=== PATIENT | male | born 1995 | race Caucasian/White ===

== ENCOUNTER → 2017-04-15 | Outpatient (CLI) | payer BC, OTHER ==
--- NOTE | 2017-04-15 16:50 | DIAGNOSTIC IMAGING REPORT ---
LEFT KNEE MRI HISTORY: Left knee injury and pain. COMPARISON STUDY: None. TECHNIQUE: Multiplanar multisequence MRI of the left knee was performed according to standard department protocol without the use of contrast. FINDINGS: Menisci: The medial and lateral menisci are intact. Ligaments: The anterior and posterior cruciate ligaments are intact. The medial and lateral collateral ligaments are normal in appearance. Extensor mechanism: The quadriceps tendon and patellar ligament are intact. Articular cartilage and bone: The articular cartilage is intact, and normal marrow signal intensity is seen throughout the imaged osseous structures. Joint effusion: Moderate. Soft tissues: Intact. IMPRESSION: 1. Moderate joint effusion. 2. The menisci are intact. Electronically signed by: Pedro Packer M.D. 04/15/2017 4:49 PM Dictated Date/Time: 04/15/2017 4:43 PM
--- NOTE | 2017-04-15 16:59 | DIAGNOSTIC IMAGING REPORT ---
ADDENDUM There is abnormal edema adjacent to the posterior lateral aspect of the lateral meniscus. This raises the possibly of meniscocapsular injury/separation. Electronically signed by: Pedro Packer M.D. 04/15/2017 5:46 PM Dictated Date/Time: 04/15/2017 5:45 PM ORIGINAL REPORT LEFT KNEE 2 VIEWS HISTORY: Left knee pain. LEFT MENISCUS TEAR COMPARISON: None. FINDINGS: There is no fracture or dislocation. Moderate knee effusion. No radiopaque foreign bodies. IMPRESSION: No fractures. Moderate knee effusion. Electronically signed by: Pedro Packer M.D. 04/15/2017 4:58 PM Dictated Date/Time: 04/15/2017 4:57 PM
== END | disposition home or self-care (01) ==
LOC: C.MRI 15:28
PROVIDERS: ATTEND Physician Assistant
DX: S83.282A Other tear of lateral meniscus, current injury, left knee, initial encounter (principal); X58.XXXA Exposure to other specified factors, initial encounter; M25.461 Effusion, right knee

== ENCOUNTER → 2017-04-27 | Day surgery (SDC) | payer BC, OTHER ==
[2017-04-20 15:36] VITALS: Ht 185.4 cm; Wt 79.5 kg
[~2017-04-27] VITALS: Ht 185.4 cm; Wt 79.5 kg
[~2017-04-27] MED LIST: ATROPINE SULFATE 0.1 MG/ML 5ML SYR IV PRN; BUPIVACAINE/EPINEPHRINE 0.5% MPF 1:200,000 30 ML VIAL ONE; CEFAZOLIN 2000 MG/60 ML D5W IV SCH; CEPH500C2 PO; DEXAMETHASONE SOD INJ 4 MG/ML VIAL ONE; EpHEDrine SULFATE INJ 50 MG/ML AMP IV PRN; FENTANYL CITRATE INJ 50 MCG/1 ML 2 ML VIAL ONE; HYDR-5688 PO; HYDROCODONE/ACETAMOPHEN 5/325MG TAB ONE; HYDROCODONE/ACETAMOPHEN 5/325MG TAB PO ONE; IBUP-1277 PO; LACTATED RINGER'S 1000ML 1,000 ML IV SCH; LIDOCAINE HCL 2% 2 ML VIAL (20MG/ML) ONE; MIDAZOLAM HCL 1 MG/ML 2ML VIAL ONE; MORPHINE SULFATE PF 2MG/2ML SYR ONE; ONDANSETRON INJ 2 MG/ML 2 ML VIAL IV PRN; ONDANSETRON INJ 2 MG/ML 2 ML VIAL ONE; PROPOFOL IV EMULSION 10 MG/ML 20 ML VIAL IV ONE; SODIUM CHLORIDE 0.9% 1000ML 1,000 ML IV SCH
--- NOTE | 2017-04-27 06:51 | History & Physical Bridge Note ---
H&P Re-Evaluation Bridge Note: I have examined the patient, reviewed the History & Physical and in the interval since the performance of the History & Physical I have noted the following changes of clinical significance:consent obtained. No changes noted
--- NOTE | 2017-04-27 06:53 | Discharge Instructions ---
Discharge Instructions Date of Service Apr 27, 2017. Visit Reason for Visit: Left Knee Lateral Meniscus Tear Discharge Discharge Diagnosis / Problem: same Discharge Goals Goal(s): Decrease discomfort, Improve function Medications Stopped Medications Name(s): na Restart Stopped Medication(s): use all scripts as directed Activity Recommendations Activity Limitations: as noted below Lifting Limitations: until after follow-up appointment Exercise/Sports Limitations: until after follow-up appointment May Resume Sexual Activity: after follow-up appointment Shower/Bathe: keep incision dry Driving or Machine Use: resume 1 day after discharge Weightbearing Status: Left weightbearing (as tolerated) Anesthesia . Post Anesthesia Instructions: If you have had General Anesthesia or IV Sedation: * Do not drive today. * Resume driving when surgeon permits. * Do not make important decisions or sign legal documents today. * Call surgeon for: 1. Temperature elevations greater than 101 degrees F. 2. Uncontrollable pain. 3. Excessive bleeding. 4. Persistent nausea and vomiting. 5. Medication intolerance (nausea, vomiting or rash). * For nausea and vomiting use only clear liquids such as: tea, soda, bouillon until nausea subsides, then gradually increase diet as tolerated. * If you have any concerns or questions, call your surgeon's office. If physician is unavailable and it is an emergency, call 911 or go to the nearest emergency room. . Instructions / Follow-Up Instructions / Follow-Up The following are instructions to follow after your Arthroscopic Knee Surgery. ACTIVITY RECOMMENDATIONS: * Minimize activity until your first visit after surgery. * No excessive walking, jogging, sports or laboring. * Return to activity is individualized. Most patients are able to return to every day activities within one month. * Return to sports or intensive labor usually occurs at 2-3 months. * Driving is not permitted until at least your first postoperative visit at a minimum. Please ask your doctor when it is safe to resume driving. If you have an automatic vehicle and your left leg has been operated on, then you may begin driving as soon as you are comfortable and can drive safely. SCHOOL/WORK RECOMMENDATIONS: * You may return to sedentary work or school when you are feeling more comfortable. This is usually 3-7 days after surgery. * Expect increased discomfort with increased activity. Continue to elevate and ice the leg as much as possible. MEDICATIONS: * You will have a prescription for pain medication and an anti-inflammatory medication after surgery. * Use the pain medication for severe pain and the anti-inflammatory for less severe pain. Once the pain medication has run out, try to use the anti-inflammatory medication. If this is not effective, contact the office for assistance. * The pain medication may cause nausea, constipation and drowsiness. You should see how they affect you before driving or similar activity. * The anti-inflammatory medication may cause stomach upset and bleeding. If this occurs let your doctor know immediately . * Take a stool softener like Colace or a laxative like Senokot to prevent constipation. DIET: * Resume previous diet. SPECIAL CARE: ICE: You have the option of an ice cooler, gel packs or ice bags. * If you have an ice cooler, refer to the instructions for that device. The ice cooler may be used continuously. * If you do not have an ice cooler, you will need to use ice bags or gel packs. Do not apply ice directly to the skin. Use a thin dressing or winsome shirt between the skin and ice bag. Apply ice for 20-30 minutes and repeat every 2-4 hours. This is especially important for the first 7-10 days after surgery. Once the pain improves, use ice as needed. ELEVATION: * Keep your leg elevated at or above the level of your heart as much as possible. * Expect some increased discomfort and swelling if you are standing for any length of time. * When lying down, avoid placing anything under your knee. Rather, prop your leg up by placing several pillows under your heel or calf. DRESSING: * Your dressing will be changed at your first therapy appointment approximately 4-5 days after surgery. Band-aids, tape strips or gauze may be applied. You may then change your dressing daily. * Reapply dressing followed by the Luis wrap or Tubi-central supply assistant stockinet and EBIce cooling pad (if chosen). * Always wash your hands prior to touching the incision area. * Once the stitches are removed, you may leave the wound open to air or cover with an Luis wrap or Tubi-central supply assistant stockinet. * If you have been given a white elastic stocking (VU hose), wear as much as possible for the first 1-3 weeks depending on swelling. * Expect some bloody drainage for the first few days after surgery. * Leave the tape strips, if present, in place for 5-7 days. * Band-aids and gauze may be changed daily. CRUTCHES: * You will need to use crutches after surgery. * You may gradually progress to full weight bearing as tolerated and wean off the crutches unless otherwise advised. * Your therapist can provide assistance weaning off crutches. * Patients who have a microfracture done may need to be toe-touch weight- bearing for 4-6 weeks. BATHING: * You may shower or sponge-bathe immediately after surgery. * The dressing will need to be covered with a plastic bag or plastic wrap until the dressing is changed on the fourth or fifth day after surgery. * Once the dressing has been changed on the fourth or fifth day after surgery, you may shower and get the incision wet. * Wash with regular soap and water. * Do not bathe (submerge the incision), soak, swim or use a hot tub until the incision is completely healed over with normal skin and the doctor has given the OK to proceed. * There is no need to apply any ointments, powders or salves to your incision. * Do not apply alcohol or hydrogen peroxide directly to the incision. * Diluted peroxide (50:50 mixture with sterile saline) may be used to clean dried blood from around the incision area. BRACE: * Bracing is generally not needed after routine Arthroscopic Knee surgery. THERAPY: * You will begin therapy four or five days after surgery. * Organized therapy with the therapist is important for the first 4-6 weeks after surgery. During that time you will attend therapy 1-3 times per week. * You will also need to do daily exercises for range of motion and strength as instructed. PROBLEMS/QUESTIONS: * If you have any problems such as severe pain, numbness, tingling or high fevers or if you have any questions, please contact the office at [phone]. * It is not uncommon to have some numbness and tingling after the surgery especially if you have had a nerve block done. This should gradually improve over the first 1- 2 days. If this persists longer or worsens please contact the office. FOLLOW UP VISIT: * If not already scheduled, please call the office at to schedule a follow-up appointment for 10 days, 6 weeks and 3 months after surgery. Diet Recommendations Recommended Home Diet: resume previous diet Procedures Procedures Performed: arthroscopy lateral meniscus surgery Pending Studies Studies pending at discharge: no Medical Emergencies . Who to Call and When: Medical Emergencies: If at any time you feel your situation is an emergency, please call 911 immediately. . Non-Emergent Contact Non-Emergency issues call your: Specialist Call Non-Emergent contact if: temperature is above 101.5, wound has increased drainage, wound has increased redness, wound has increased pain, you have any medication questions . . "Provider Documentation" section prepared by Arash Olson. .
--- NOTE | 2017-04-27 08:49 | [facility] Post Operative Brief Note ---
Immediate Operative Summary Operative Date Apr 27, 2017. Pre-Operative Diagnosis Left Knee Lateral Meniscus Tear Post-Operative Diagnosis Same Procedure(s) Performed Left Knee Arthroscopy, Lateral Meniscus Repair Surgeon Dr Olson Service Learning Coordinator Surgeon(s) Phillip Cline PA-C Estimated Blood Loss Trace Findings LM tear red/white and red/red Fluids (cc crystalloids) 700cc Specimens None Drains none Anesthesia LMA Complication(s) None Disposition Recovery Room / PACU
--- NOTE | 2017-04-27 09:11 | OPERATIVE REPORT ---
DATE OF OPERATION: 04/27/2017 PREOPERATIVE DIAGNOSIS: Lateral meniscus tear, left knee. POSTOPERATIVE DIAGNOSIS: Same, repairable. OPERATION PERFORMED: 1. Exam under anesthesia. 2. Diagnostic arthroscopy. 3. Arthroscopic all inside lateral meniscus repair. SURGEON: Dr. Olson. INSOLE TACK PULLER HAND: Jerome Cline PA-C. No resident or fellow available. PERIOPERATIVE SITUATION: Medically cleared male high level [employer] kristen who presents with intermittent locking of his knee. Physical exam, x-ray and MRI scan consistent with peripheral lateral meniscus tear. OPERATION AND FINDINGS: OPERATION: The patient appropriately identified, site verified, consent verified, 2 grams of Ancef confirmed as being given. The knee was examined revealing no ligamentous instability. He had full range of motion. The knee was then prepped and draped in usual routine fashion after it was sterilely injected with 20 mL of 0.5% Marcaine with epinephrine and 5 mg of Duramorph for postoperative pain control. Inframedial and inferolateral portals were made. Inspection of the joint revealed a hypertrophic plica which was resected anteriorly. There was some minor articular surface scuffing of the patellofemoral joint which was incidentally debrided. The medial compartment was healthy. The ACL and PCL were normal. The lateral meniscus had a red on red to red on white peripheral tear which was unstable to probing. It extended from the hiatus anteriorly to about 0.5 cm from the root. The area was then freshened with a shaver and with a rasp and then 5 sutures were placed in a horizontal and vertical mattress fashion to secure the meniscus. An excellent repair was obtained. The knee was unable to be fully extended. The meniscus was probed. There was no issue with it being unstable any further. The procedure was then terminated. All instruments and fluid removed and the portals closed with 3-0 nylon, dressed with Xeroform, 4 x 4 gauze, sterile Webril, ABD pads and a double 6 inch Luis bandage. A range of motion brace locked at 0 degrees was then placed. He will be weightbearing to tolerance with the brace locked straight. No motion for 2 weeks. Start range of motion not exceeding 90 degrees for approximately a total of 6 weeks postop. Again, he will be completely still for a minimum of 2 weeks. DVT prophylaxis per protocol. ESTIMATED BLOOD LOSS: Trace. CRYSTALLOID: 700 mL. I attest to the content of the Intraoperative Record and any orders documented therein. Any exception s are noted below.
[2017-04-27] MEDS: FENTANYL CITRATE INJ 50 MCG/1 ML 2 ML VIAL IV PRN ×2 (09:13→09:19)
[2017-04-27 09:46] VITALS: TEMP 36.4
[2017-04-27 10:29] VITALS: BP 103/64; PULSE 52; O2SAT 100
--- NOTE | 2017-04-27 10:33 | [facility] Operative Report ---
Operative Report Operative Date Apr 27, 2017. Pre-Operative Diagnosis Left Knee Lateral Meniscus Tear Post-Operative Diagnosis Same Procedure(s) Performed Left Knee Arthroscopy, Lateral Meniscus Repair Surgeon Dr Olson Insurance Loss Control Surveyor Surgeon(s) Phillip Cline PA-C Estimated Blood Loss Trace Findings Left knee lateral meniscal tear Fluids (cc crystalloids) 700cc Specimens None Drains none Complication(s) None Disposition Recovery Room / PACU Indications This 21-year-old white male presented to the office with complaints of left knee pain after injuring himself in a soccer game. He had tried conservative care including bracing without success. X-ray and MRI were obtained. He elected to proceed with surgical intervention after being educated about potential risks and outcomes. Description of Procedure Patient was taken to the operating room where he was given general anesthesia. He was prepped and draped in usual sterile fashion. Please see Dr. Olson's operative report for specifics of the procedure. I was present for the entire case from initial patient positioning through final wound closure. Assistance was provided in patient positioning, arthroscopy, hardware placement, and final wound closure. Patient was taken to the recovery room in satisfactory condition. I attest to the content of the Intraoperative Record and any orders documented therein. Any exceptions are noted below.
--- NOTE | 2017-04-27 10:35 | Anesthesiology Progress Note ---
Anesthesia Post Op Note Date & Time Apr 27, 2017 at 10:34 Vital Signs Pain Intensity: 7 Vital Signs Past 12 Hours Date Time Temp Pulse Resp B/P (MAP) Pulse Ox O2 Delivery O2 Flow Rate FiO2 04/27/17 10:29 52 16 103/64 (77) 100 Room Air 04/27/17 09:46 36.4 62 16 122/73 (89) 100 Room Air 04/27/17 09:41 61 8 100 04/27/17 09:41 59 8 04/27/17 09:40 121/72 04/27/17 09:36 63 13 04/27/17 09:36 63 13 100 04/27/17 09:35 123/82 04/27/17 09:32 62 18 04/27/17 09:32 57 18 100 04/27/17 09:30 36.2 57 13 123/82 98 Room Air 04/27/17 09:30 114/86 04/27/17 09:27 71 17 100 04/27/17 09:27 70 17 04/27/17 09:26 104/72 04/27/17 09:22 56 12 100 04/27/17 09:22 58 12 04/27/17 09:20 118/76 04/27/17 09:17 58 16 100 04/27/17 09:17 60 16 04/27/17 09:15 121/67 04/27/17 09:12 49 21 04/27/17 09:12 50 21 100 04/27/17 09:10 106/69 04/27/17 09:07 72 12 04/27/17 09:07 75 12 100 04/27/17 09:05 118/66 04/27/17 09:02 75 8 100 04/27/17 09:02 73 8 04/27/17 09:01 99/70 04/27/17 08:57 62 18 100 04/27/17 08:57 63 18 04/27/17 08:55 112/59 04/27/17 08:52 60 17 04/27/17 08:52 59 17 92/51 99 04/27/17 08:52 36.1 58 20 92/51 99 Mask 6 04/27/17 06:29 36.6 89 16 112/80 (91) 100 Room Air Notes Mental Status: alert / awake / arousable, participated in evaluation Pt Amnestic to Procedure: Yes Nausea / Vomiting: adequately controlled Pain: adequately controlled Airway Patency, RR, SpO2: stable & adequate BP & HR: stable & adequate Hydration State: stable & adequate Anesthetic Complications: no major complications apparent
== END | disposition home or self-care (01) ==
LOC: X.SURG 06:20
PROVIDERS: ATTEND Physical Medicine & Rehabilitation Sports Medicine
DX: S83.262A Peripheral tear of lateral meniscus, current injury, left knee, initial encounter (principal); X58.XXXA Exposure to other specified factors, initial encounter; Y93.66 Activity, soccer; F17.200 Nicotine dependence, unspecified, uncomplicated; Z68.23 Body mass index [BMI] 23.0-23.9, adult

== ENCOUNTER 2017-05-01 22:49 | Emergency (ER) | payer BC, OTHER ==
[~2017-05-01] VITALS: Ht 185.4 cm; Wt 76.7 kg
[~2017-05-01 22:49] MED LIST changes: -ATROPINE SULFATE 0.1 MG/ML 5ML SYR IV PRN; -BUPIVACAINE/EPINEPHRINE 0.5% MPF 1:200,000 30 ML VIAL ONE; -CEFAZOLIN 2000 MG/60 ML D5W IV SCH; -DEXAMETHASONE SOD INJ 4 MG/ML VIAL ONE; -EpHEDrine SULFATE INJ 50 MG/ML AMP IV PRN; -FENTANYL CITRATE INJ 50 MCG/1 ML 2 ML VIAL ONE; -HYDROCODONE/ACETAMOPHEN 5/325MG TAB ONE; -HYDROCODONE/ACETAMOPHEN 5/325MG TAB PO ONE; -LACTATED RINGER'S 1000ML 1,000 ML IV SCH; -LIDOCAINE HCL 2% 2 ML VIAL (20MG/ML) ONE; -MIDAZOLAM HCL 1 MG/ML 2ML VIAL ONE; -MORPHINE SULFATE PF 2MG/2ML SYR ONE; -ONDANSETRON INJ 2 MG/ML 2 ML VIAL IV PRN; -ONDANSETRON INJ 2 MG/ML 2 ML VIAL ONE; -PROPOFOL IV EMULSION 10 MG/ML 20 ML VIAL IV ONE; -SODIUM CHLORIDE 0.9% 1000ML 1,000 ML IV SCH
[2017-05-01 22:52] VITALS: TEMP 36.4; Ht 185.4 cm; Wt 76.7 kg
[2017-05-01] MEDS ORDERED: SODIUM CHLORIDE 0.9% 1000ML 1,000 ML IV STA (23:08)
[2017-05-01] MEDS ORDERED: KETOROLAC TROMETHAMINE 30 MG/ML VIAL IV STA (23:08)
[2017-05-01] MEDS ORDERED: MoRPHine SULFATE 4 MG/ML 1 ML CARP\\VIAL IV STA (23:08)
[2017-05-01] MEDS ORDERED: ONDANSETRON INJ 2 MG/ML 2 ML VIAL IV STA (23:08)
[2017-05-01 23:28] VITALS: O2SAT 100
[2017-05-01 23:38] LABS: BASO % 0.1 %; BASO ABS # 0.01 K/uL (0-0.2); COMPLETE YES; EOS % 0.1 %; HEMATOCRIT 41.6 % (42-52); IG% 0.1 %; LYMPH % 34.7 %; LYMPH ABS # 3.41 K/uL (1.2-3.4); MEAN CELL VOLUME 82.5 fL (80-100); MEAN CORPUSCULAR HEMOGLOBIN 29.2 pg (25-34); MEAN CORPUSCULAR HGB CONC 35.3 g/dl (32-36); MONO % 5.7 %; NEUT % 59.3 %; PLATELET COUNT 200 K/uL (130-400); RED BLOOD COUNT 5.04 M/uL (4.7-6.1); WHITE BLOOD COUNT 9.82 K/uL (4.8-10.8)
[2017-05-01 23:48] LABS: PARTIAL THROMBOPLASTIN RATIO 1.1
[2017-05-01 23:57] LABS: ALT/SGPT 44 U/L (12-78); AST/SGOT 33 U/L (15-37); BLOOD UREA NITROGEN 20 mg/dl (7-18); BUN/CREATININE RATIO 18.6 (10-20); CALCIUM 9.5 mg/dl (8.5-10.1); CARBON DIOXIDE 25 mmol/L (21-32); CHLORIDE 104 mmol/L (98-107); CREATININE 1.05 mg/dl (0.60-1.40); GLUCOSE 105 mg/dl (70-99); POTASSIUM 3.7 mmol/L (3.5-5.1); SODIUM 140 mmol/L (136-145)
[2017-05-01 23:59] LABS: ALKALINE PHOSPHATASE 74 U/L (45-117); C-REACTIVE PROTEIN < 0.29 mg/dl (0-0.29)
[2017-05-02] MEDS ORDERED: HYDR-5688 PO (01:09)
[2017-05-02 01:15] VITALS: BP 122/74; PULSE 67; O2SAT 96
--- NOTE | 2017-05-02 02:18 | EMERGENCY ROOM VISIT NOTE ---
History First contact with patient: 22:58 Chief Complaint: KNEEPAIN Stated Complaint: CAN'T BREATH, ARMS ARE NUMB, L KNEE HEAVY, NAUSEA History of Present Illness The patient is a 21 year old male who presents to the Emergency Room with complaints of left knee pain, swelling, shortness of breath and numbness/ tingling in his arms. The patient reports that he underwent a left knee arthroscopy with meniscus repair 4 days ago. This was performed by Dr. Sherman. The patient admits that his knee has been quite painful, and may not have been taking his pain medications enough. He has not noticed any redness of the knee or drainage from the incision sites. He denies any fever or chills, nausea, vomiting or back pain. He rates his discomfort a 6 out of 10. The patient denies history of anxiety or panic attacks. The patient reports that he has been using his brace and crutches as instructed, and elevating/icing the knee for swelling. Review of Systems HEENT: Denies dizziness, visual problems, hearing loss, tinnitus. Denies difficulty swallowing or oral lesions. PULMONARY: Denies cough, shortness of breath, sputum production or hemoptysis. CARDIOVASCULAR: Denies chest pain, palpitations, dyspnea on exertion, orthopnea or peripheral edema. GASTROINTESTINAL: Denies diarrhea, constipation, nausea, vomiting, or abdominal pain. GENITOURINARY: Denies dysuria, frequency, urgency or nocturia. NEUROLOGIC: Denies history of epilepsy, CVA, TIA or chronic headaches. MUSCULOSKELETAL: Denies history of joint tenderness/swelling. SKIN: Denies rashes or lesions. PSYCHIATRIC: Denies history of depression or mental illness. ENDOCRINE: Denies history of diabetes or thyroid disorders. Past Medical/Surgical History Medical Problems: (1) Nicotine Dependence, Unspecified, Uncomplicated Surgical Problems: (1) S/P left knee arthroscopy Family History Unremarkable Social History Smoking Status: Never Smoker Alcohol Use: occasionally Marital Status: single Occupation Status: [employer] student Current/Historical Medications Scheduled Cephalexin Monohydrate (Keflex), 500 MG PO TID Scheduled PRN Hydrocodone/Acetaminophen 5MG/325MG ([place] 5MG/325MG), 1 TABLET PO for Pain Hydrocodone/Acetaminophen 5MG/325MG ([place] 5MG/325MG), 1-2 TABLET PO Q4H PRN for Pain Ibuprofen (Advil), 400-600 MG PO Q6H PRN for Pain Physical Exam Vital Signs Date Time Temp Pulse Resp B/P (MAP) Pulse Ox O2 Delivery O2 Flow Rate FiO2 05/02/17 01:15 67 18 122/74 96 05/01/17 23:28 100 Room Air 05/01/17 22:52 36.4 91 32 127/80 98 Room Air Physical Exam CONSTITUTIONAL: Healthy and well nourished. Alert and oriented X 3 with positive affect. Patient appears in moderate discomfort from pain. HEENT: Normocephalic, atraumatic. Pupils equal, round and reactive. No scleral icterus or conjunctival injection/pallor. NECK: Full active range of motion without discomfort. RESPIRATORY: Clear to auscultation bilaterally with no wheezing, crackles, rhonchi or stridor. CARDIOVASCULAR: Regular rate and rhythm with no murmurs, rubs or gallops. GASTROINTESTINAL: Bowel sounds present in all quadrants. Soft and nontender to palpation. MUSCULOSKELETAL: Examination of the left knee shows a 2+ joint effusion without any overriding erythema. The knee is warm to palpation. Incision sites are clean and without any purulent drainage or peripheral erythema. Patient has no tenderness to palpation of the hamstrings or gastroc. Distal pulses are intact. INTEGUMENTARY: No rash or other significant dermatologic conditions noted. NEUROLOGIC: No focal neurologic deficits noted. Left foot and toes are sensory intact. Medical Decision & Procedures ER Provider Diagnostic Interpretation: Venous ultrasound of the left lower extremity is negative for deep vein thrombosis. [facility] report was also reviewed. My interpretation of a portable chest x-ray does not show any consolidations, pneumothorax or other acute findings. Local radiologist reports are pending. Laboratory Results 05/01/17 23:22 Red Blood Count 5.04, Mean Corpuscular Volume 82.5, Mean Corpuscular Hemoglobin 29.2, Mean Corpuscular Hemoglobin Concent 35.3, Mean Platelet Volume 9.0, Neutrophils (%) (Auto) 59.3, Lymphocytes (%) (Auto) 34.7, Monocytes (%) (Auto) 5.7, Eosinophils (%) (Auto) 0.1, Basophils (%) (Auto) 0.1, Neutrophils # (Auto) 5.82, Lymphocytes # (Auto) 3.41, Monocytes # (Auto) 0.56, Eosinophils # (Auto) 0.01, Basophils # (Auto) 0.01 05/01/17 23:22 Test 05/01/17 23:22 White Blood Count 9.82 K/uL (4.8-10.8) Red Blood Count 5.04 M/uL (4.7-6.1) Hemoglobin 14.7 g/dL (14.0-18.0) Hematocrit 41.6 % (42-52) Mean Corpuscular Volume 82.5 fL (80-100) Mean Corpuscular Hemoglobin 29.2 pg (25-34) Mean Corpuscular Hemoglobin Concent 35.3 g/dl (32-36) Platelet Count 200 K/uL (130-400) Mean Platelet Volume 9.0 fL (7.4-10.4) Neutrophils (%) (Auto) 59.3 % Lymphocytes (%) (Auto) 34.7 % Monocytes (%) (Auto) 5.7 % Eosinophils (%) (Auto) 0.1 % Basophils (%) (Auto) 0.1 % Neutrophils # (Auto) 5.82 K/uL (1.4-6.5) Lymphocytes # (Auto) 3.41 K/uL (1.2-3.4) Monocytes # (Auto) 0.56 K/uL (0.11-0.59) Eosinophils # (Auto) 0.01 K/uL (0-0.5) Basophils # (Auto) 0.01 K/uL (0-0.2) RDW Standard Deviation 37.7 fL (36.4-46.3) RDW Coefficient of Variation 12.6 % (11.5-14.5) Immature Granulocyte % (Auto) 0.1 % Immature Granulocyte # (Auto) 0.01 K/uL (0.00-0.02) Erythrocyte Sedimentation Rate 3 mm/hr (0-14) Prothrombin Time 11.0 SECONDS (9.0-12.0) Prothromb Time International Ratio 1.0 (0.9-1.1) Activated Partial Thromboplast Time 28.9 SECONDS (21.0-31.0) Partial Thromboplastin Ratio 1.1 D-Dimer 190 ug/L FEU (0-500) Anion Gap 11.0 mmol/L (3-11) Est Creatinine Clear Calc Drug Dose 119.7 ml/min Estimated GFR () 116.2 Estimated GFR (Non- 100.3 BUN/Creatinine Ratio 18.6 (10-20) Lactic Acid Level 2.6 mmol/L (0.4-2.0) Calcium Level 9.5 mg/dl (8.5-10.1) Total Bilirubin 0.8 mg/dl (0.2-1) Direct Bilirubin 0.2 mg/dl (0-0.2) Aspartate Amino Transf (AST/SGOT) 33 U/L (15-37) Alanine Aminotransferase (ALT/SGPT) 44 U/L (12-78) Alkaline Phosphatase 74 U/L (45-117) Total Creatine Kinase 452 U/L (39-308) C-Reactive Protein < 0.29 mg/dl (0-0.29) Total Protein 7.9 gm/dl (6.4-8.2) Albumin 4.2 gm/dl (3.4-5.0) The above labs were reviewed, showing a mildly elevated lactic acid. His CBC is otherwise unremarkable. CRP and sedimentation rate are normal. Coagulation studies are normal. LFTs are normal. D-dimer is also normal. Medications Administered Medications (Trade) Dose Ordered Sig/Oswaldo Route Start Time Stop Time Status Last Admin Dose Admin Ketorolac Tromethamine (Toradol Inj) 30 mg NOW STAT IV 05/01/17 23:08 05/01/17 23:12 DC 05/01/17 23:25 30 MG Sodium Chloride 1,000 ml @ 999 mls/hr Q1H1M STAT IV 05/01/17 23:08 05/02/17 00:08 DC 05/01/17 23:24 999 MLS/HR Morphine Sulfate (MoRPHine SULFATE INJ) 4 mg NOW STAT IV 05/01/17 23:08 05/01/17 23:12 DC 05/01/17 23:25 4 MG Ondansetron HCl (Zofran Inj) 4 mg NOW STAT IV 05/01/17 23:08 05/01/17 23:12 DC 05/01/17 23:24 4 MG ED Course Patient history and physical exam were performed. Nurse's notes were reviewed. Vital signs were reviewed and normal. The patient is afebrile. He does appear in significant discomfort, and is concerned regarding his knee discomfort and shortness of breath. The patient is 4 days status post left knee arthroscopic lateral meniscus repair. His clinical exam at this point is not suggestive of infection, however I expressed my concern regarding his symptoms, and suggested workup to rule out possible infectious etiology. The patient was in agreement. IV access was established, and labs were drawn, including blood cultures 2. The patient was hydrated with normal saline, and was administered IV morphine, Toradol and Zofran. Labs were reviewed to show no acute findings except for an elevated lactic acid which may be secondary to collection method. The patient is afebrile and has no leukocytosis. D-dimer was also normal, therefore I feel that the risk for pulmonary embolus is low. A venous ultrasound of the left extremity was negative for deep vein thrombosis. At this point, I did suggest that the patient follow-up with Dr. Olson Wednesday for reevaluation. He was instructed to return to the emergency department sooner for any worsening signs and symptoms. He was encouraged to continue wearing his lockout brace, and use crutches as needed for additional pain relief. The patient reports that he only has a few more of his hydrocodone left. He was provided an additional prescription for [place] 5/325, dispensed #15 with no refills. The patient was happy with plan of care, voiced understanding of all discharge instructions, and rated his discomfort a 2 out of 10 at the completion of my exam. Medical Decision Please see the previous section Medication Reconcilliation Current Medication List: was personally reviewed by me Blood Pressure Screening Patient's blood pressure: Normal blood pressure Impression Primary Impression: Postoperative pain of left knee Departure Information Dispostion Home / Self-Care Condition FAIR Prescriptions Hydrocodone/Acetaminophen 5MG/325MG ([place] 5MG/325MG) Tab 1-2 TABLET PO Q4H Y for Pain, #15 TAB For Initial Treatment Prov: Baudilio Moreira PA 05/02/17 Referrals Arash Olson M.D. Forms HOME CARE DOCUMENTATION FORM, IMPORTANT VISIT INFORMATION Patient Instructions My [facility] Additional Instructions Continue all instructions as provided by Dr. Olson. You have been provided another prescription for hydrocodone. Don't let pain get ahead of you. Call Dr. Olson's office Wednesday morning for an appointment. Return to the emergency department for any developing fever, knee redness or other concerning symptoms.
--- NOTE | 2017-05-02 06:27 | DIAGNOSTIC IMAGING REPORT ---
CHEST ONE VIEW PORTABLE CLINICAL HISTORY: Fever, sepsis. COMPARISON STUDY: No previous studies for comparison. FINDINGS: The cardiac and mediastinal contours are normal. There is no evidence of focal pulmonary consolidation. There is no evidence of failure. No pleural effusions are visualized.[ IMPRESSION: No active disease in the chest. Electronically signed by: Jaime Rm M.D. 05/02/2017 6:25 AM Dictated Date/Time: 05/02/2017 6:25 AM
--- NOTE | 2017-05-02 06:46 | DIAGNOSTIC IMAGING REPORT ---
ULTRASOUND L VENOUS DOPP LOWER EXT UNILAT CLINICAL HISTORY: Left leg pain COMPARISON STUDY: No previous studies for comparison. FINDINGS: Real-time and color flow Doppler imaging were performed. Flow was seen within the femoral, popliteal and calf veins with no intraluminal thrombus demonstrated. The saphenous vein is patent. IMPRESSION: No evidence of left lower extremity DVT. Electronically signed by: Jaime Rm M.D. 05/02/2017 6:45 AM Dictated Date/Time: 05/02/2017 6:45 AM
== END 2017-05-02 01:13 | disposition home or self-care (01) ==
LOC: C.EDB 22:50 → C.EDD 05-02 01:13
DX: G89.18 Other acute postprocedural pain (principal); M25.562 Pain in left knee; Z87.891 Personal history of nicotine dependence